=== PATIENT | female | born 1985 | race Caucasian/White ===

== ENCOUNTER 2018-04-20 09:07 | Emergency (ER) | payer MEDICAID, OTHER ==
[2018-04-20 09:08] VITALS: BMI 26.6
[2018-04-20 09:18] VITALS: TEMP 98.4; O2SAT 96
[2018-04-20] MEDS ORDERED: Albuterol-Ipratrop 3 mg / 0.5 (3 ml) UD ONE (09:55)
[2018-04-20] MEDS ORDERED: Albuterol 0.083% Inhal Sol (2.5 mg/3 mL) UD ONE (09:55)
[2018-04-20] MEDS ORDERED: Albuterol 0.083% Inhal Sol (2.5 mg/3 mL) UD INH STA (10:03)
[2018-04-20] MEDS ORDERED: Albuterol-Ipratrop 3 mg / 0.5 (3 ml) UD IH STA (10:03)
[2018-04-20] MEDS ORDERED: Albuterol 0.083% Inhal Sol (2.5 mg/3 mL) UD IH STA (10:04)
--- NOTE | 2018-04-20 10:37 | RAD ---
HISTORY: cough/wheezing COMPARISON: No prior. TECHNIQUE: Chest PA and lateral FINDINGS: LUNGS: Mild hazy right middle lobe infiltrate or atelectasis. Please note that chest x-ray has limited sensitivity for the detection of pulmonary masses. PLEURA: No significant pleural effusion identified. No definite pneumothorax . CARDIOVASCULAR: Heart size appears within normal limits. No atherosclerotic calcification present. OSSEOUS STRUCTURES: Degenerative changes. VISUALIZED UPPER ABDOMEN: Unremarkable. OTHER FINDINGS: None. IMPRESSION: Mild hazy right middle lobe infiltrate or atelectasis.
--- NOTE | 2018-04-20 12:11 | C.PDOC ---
History Of Present Illness 33 y/o female, w/PMhx of asthma, presents to the ER complaining of flu-like symptoms including nasal congestion cough, and sore throat which has been present for the past 3 days. Patient states that she had initially had dry cough which gradually progressed to productive cough with green sputum. Patient reports that she was wheezing. She notes that she was using her child's nebulizer and pump without improvement. Denies having fever, chills, nausea, vomiting, and abdominal pain. Time Seen by Provider: 04/20/18 09:34 Chief Complaint (Nursing): Cough, Cold, Congestion History Per: Patient History/Exam Limitations: no limitations Onset/Duration Of Symptoms: Days Current Symptoms Are (Timing): Still Present Severity: Moderate Past Medical History Reviewed: Historical Data, Nursing Documentation, Vital Signs Vital Signs: Last Vital Signs Temp 98.4 F 04/20/18 09:14 Pulse 80 04/20/18 09:14 Resp 20 04/20/18 09:14 BP 105/74 04/20/18 09:14 Pulse Ox 96 04/20/18 09:14 - Medical History PMH: Asthma, Gall Bladder Disease Denies: Depression, Chronic Kidney Disease Surgical History: No Surg Hx - [facility] Procedures EXCISION OF STOMACH, ENDO, DIAGN (02/03/16) EXTIRPATION OF MATTER FROM COMMON BILE DUCT, ENDO (02/03/16) FLUOROSCOPY OF BILI/PANCR DUCT USING OTH CONTRAST (02/03/16) IMMOBILIZ/WOUND ATTN NEC (02/20/13) INJECT/INFUSE ELECTROLYT (07/27/13) INJECT/INFUSE NEC (07/27/13) RADIOGRAPHY OF GALLBLADDER & BILE DUCT USING OTH CONTRAST (02/03/16) RESECTION OF GALLBLADDER, PERCUTANEOUS ENDOSCOPIC APPROACH (02/03/16) ULTRASONOGRAPHY OF HEPATOBILIARY SYSTEM, ALL (02/03/16) Family History: States: No Known Family Hx - Social History Hx Tobacco Use: No Hx Alcohol Use: No Hx Substance Use: No - Immunization History Hx Tetanus Toxoid Vaccination: No Hx Influenza Vaccination: No Hx Pneumococcal Vaccination: No Review Of Systems Except As Marked, All Systems Reviewed And Found Negative. Constitutional: Negative for: Fever, Chills ENT: Positive for: Nose Congestion, Throat Pain Cardiovascular: Negative for: Chest Pain Respiratory: Positive for: Cough. Negative for: Shortness of Breath, Wheezing Gastrointestinal: Negative for: Nausea, Vomiting Physical Exam - Physical Exam Appears: Non-toxic, No Acute Distress Skin: Normal Color, Warm, Dry Head: Atraumatic, Normacephalic Eye(s): bilateral: Normal Inspection Ear(s): Bilateral: Normal Nose: Normal Oral Mucosa: Moist Throat: Normal, No Erythema, No Exudate Neck: Supple Chest: Symmetrical Cardiovascular: Rhythm Regular Respiratory: No Rales, No Rhonchi, Wheezing (wheezing bilaterally) Gastrointestinal/Abdominal: Normal Exam, Soft, No Tenderness, No Guarding, No Rebound Neurological/Psych: Oriented x3, Normal Speech ED Course And Treatment O2 Sat by Pulse Oximetry: 96 (RA) Pulse Ox Interpretation: Normal - Other Rad CXR X-Ray: Viewed By Me, Read By Radiologist Interpretation: HISTORY: cough/wheezing. COMPARISON: No prior. TECHNIQUE: Chest PA and lateral. FINDINGS: LUNGS: Mild hazy right middle lobe infiltrate or atelectasis. Please note that chest x-ray has limited sensitivity for the detection of pulmonary masses. PLEURA: No significant pleural effusion identified. No definite pneumothorax . CARDIOVASCULAR: Heart size appears within normal limits. No atherosclerotic calcification present. OSSEOUS STRUCTURES: Degenerative changes. VISUALIZED UPPER ABDOMEN: Unremarkable. OTHER FINDINGS: None. IMPRESSION: Mild hazy right middle lobe infiltrate or atelectasis. Progress Note: ECG and CXR ordered. Patient treated with Albuterol, Avelox PO, and Prednisone PO. On re-evaluation patient feels better and is able to be d/c home with PMD follow up. Disposition - Disposition Referrals: Lazaro Tesfaye MD [Staff Provider] - Disposition: HOME/ ROUTINE Disposition Time: 12:09 Condition: STABLE Additional Instructions: Follow up with your PMD within 1-2 days. Return to ED if feel worse. Prescriptions: Albuterol 0.083% [Albuterol Sulfate 3 Ml] 3 ml IH .Q4-6H #100 vial Moxifloxacin [Avelox] 400 mg PO DAILY #10 tab predniSONE [predniSONE Tab] 2 tab PO DAILY #8 tab Albuterol Sulfate [Proair Hfa] 1 puff IH Q6 PRN #1 inh PRN Reason: Cough Benzonatate [Tessalon Perles] 2 tab PO TID #60 sgl Instructions: Pneumonia in Adults, Asthma in Adults Forms: [facility] ([place]an), Work Excuse - Clinical Impression Clinical Impression: Pneumonia, Asthma - PA / [employer] / Resident Statement MD/DO has reviewed & agrees with the documentation as recorded. - Scribe Statement The provider has reviewed the documentation as recorded by the Scribe Miya Solano Provider Attestation All medical record entries made by the Scribe were at my direction and personally dictated by me. I have reviewed the chart and agree that the record accurately reflects my personal performance of the history, physical exam, medical decision making, and the department course for this patient. I have also personally directed, reviewed, and agree with the discharge instructions and disposition.
[2018-04-20 13:37] VITALS: BP 122/85; PULSE 78; RESP 16
--- NOTE | 2018-04-22 17:16 | CARD ---
APPROVED REPORT Date of service: 04/20/2018 EKG Measurement Heart [id number] <Conclusion> Normal sinus rhythm Normal ECG
== END 2018-04-20 13:30 | disposition home or self-care (01) ==
LOC: C.ER 09:07
DX: J18.9 Pneumonia, unspecified organism (principal); J45.909 Unspecified asthma, uncomplicated